=== PATIENT | male | born 1960 | race Caucasian/White ===

== ENCOUNTER 2022-06-30 13:13 | Observation (INO) | payer OTHER ==
[~2022-06-30] VITALS: Ht 172.7 cm; Wt 133.8 kg
[2022-06-30] MEDS ORDERED: meTOprolol 5 MG/5 ML (LOPRESSOR) VIAL IV STA (13:22)
[2022-06-30] MEDS ORDERED: NITROGLYCERIN 0.4 MG SL TABS BTL 25'S SL PRN ×2 (13:30→18:30)
[2022-06-30 13:38] LABS: BASOPHILS % (AUTO) 1 % (0-10); EOSINOPHILS # (AUTO) 0.1 10^3/uL (0.0-0.3); EOSINOPHILS % (AUTO) 2 % (0-10); HEMATOCRIT 44 % (40-54); LYMPHOCYTES # (AUTO) 2.8 10^3/uL (1.0-4.0); LYMPHOCYTES % (AUTO) 33 % (12-44); MEAN CORPUSCULAR HEMOGLOBIN 28 pg (25-34); MEAN CORPUSCULAR HGB CONC 34 g/dL (32-36); MEAN CORPUSCULAR VOLUME 83 fL (80-99); MEAN PLATELET VOLUME 9.7 fL (9.0-12.2); MONOCYTES # (AUTO) 0.6 10^3/uL (0.0-1.0); MONOCYTES % (AUTO) 7 % (0-12); NEUTROPHILS # (AUTO) 4.9 10^3/uL (1.8-7.8); NEUTROPHILS % (AUTO) 58 % (42-75); PLATELET COUNT 256 10^3/uL (130-400); WHITE BLOOD COUNT 8.5 10^3/uL (4.3-11.0)
--- NOTE | 2022-06-30 13:42 | ED Chest Pain ---
General Chief Complaint: Chest Pain Stated Complaint: CHEST PAIN Source: patient, EMS, other (nurse practitioner Britany from [facility] Urgent care) Exam Limitations: no limitations History of Present Illness Date Seen by Provider: Jun 30, 2022 Time Seen by Provider: 13:19 Initial Comments 62-year-old male presenting with EMS due to complaints of chest tightness for the last 2 days. He had a syncopal episode on June 28 and has had chest tightness ever since. He states he feels a little lightheaded. He denies sweating, nausea, vomiting, shortness of breath, abdominal pain, neck pain, numbness in his arms or legs. He denies having symptoms like this previously. He does have a history of diabetes and high blood pressure which also runs in his family. He denies any known cardiac disease for himself or his parents. At work today he had felt like he was going to pass out and had increased chest tightness. He had gone to the urgent care clinic for [facility] and they had called 911 and had EMS transport him for evaluation of his chest tightness. He did receive 324 mg of aspirin by the [facility] staff. He rates his chest tightness as a 3 out of 10. Nothing seems to make it worse or better. Timing/Duration: 1-2 days (Constant chest tightness since June 28) Severity/Quality: mild, tightness Location: substernal, central Radiation: no radiation Activities at Onset: none Prior CP/Workup: no prior cardiac workup ASA po MANAGER ROOFING: Yes (324 mg by [facility]) NTG SL MANAGER ROOFING: No Associated Symptoms: No abdominal pain, No back pain, No diaphoresis, No dizziness, No edema, No fatigue, No fever/chills, No headache, No heartburn, No nausea/vomiting, No rash, No shortness of breath, No swelling/lump in chest, No syncope, No weakness Allergies and Home Medications Allergies Coded Allergies: No Known Drug Allergies (Unverified , 06/30/22) Patient Home Medication List Home Medication List Reviewed: Yes Review of Systems Review of Systems Constitutional: No chills, No diaphoresis, No fever EENTM: No Blurred Vision Respiratory: Denies Cough, Denies Shortness of Air Cardiovascular: See HPI; Denies Edema, Denies Irregular Heart Rate; Lightheadedness; Denies Palpitations; Syncope (Monday and then near syncope today) Gastrointestinal: Denies Nausea, Denies Vomiting Genitourinary: No Symptoms Reported Musculoskeletal: no symptoms reported Skin: no symptoms reported Psychiatric/Neurological: No Symptoms Reported Endocrine: No Symptoms Reported Hematologic/Lymphatic: Denies Blood Clots Past Tyboqng-Vaxcxd-Mhjiuk Hx Patient Social History Tobacco Use?: No Use of E-Cig and/or Vaping dev: No Substance use?: No Alcohol Use?: No Past Medical History Surgery/Hospitalization HX: Hypertension, Diabetes Physical Exam Vital Signs Vital Signs - First Documented 06/30/22 13:13 Temp 36.7 Pulse 93 Resp 12 B/P (MAP) 155/79 (104) Pulse Ox 97 O2 Delivery Room Air Capillary Refill : Height, Weight, BMI Height: '" Weight: lbs. oz. kg; BMI Method: General Appearance: No Apparent Distress, Obese HEENT: PERRL/EOMI, Pharynx Normal Neck: Full Range of Motion, Normal Inspection, Non Tender, Supple Respiratory: Chest Non Tender, Lungs Clear, Normal Breath Sounds, No Accessory Muscle Use, No Respiratory Distress Cardiovascular: Regular Rate, Rhythm, Normal Peripheral Pulses Gastrointestinal: Normal Bowel Sounds, No Pulsatile Mass, Non Tender, Soft Rectal: Deferred Extremity: Normal Capillary Refill, Normal Inspection, Normal Range of Motion, Non Tender, No Calf Tenderness, No Pedal Edema Neurologic/Psychiatric: Alert, Oriented x3, dancing teacher II-XII Norm as Tested Skin: Normal Color, Warm/Dry Progress/Results/Core Measures Results/Orders Lab Results Laboratory Tests Test 06/30/22 13:30 06/30/22 15:26 Range/Units White Blood Count 8.5 4.3-11.0 10^3/uL Red Blood Count 5.35 4.30-5.52 10^6/uL Hemoglobin 15.0 13.3-17.7 g/dL Hematocrit 44 40-54 % Mean Corpuscular Volume 83 80-99 fL Mean Corpuscular Hemoglobin 28 25-34 pg Mean Corpuscular Hemoglobin Concent 34 32-36 g/dL Red Cell Distribution Width 13.5 10.0-14.5 % Platelet Count 256 130-400 10^3/uL Mean Platelet Volume 9.7 9.0-12.2 fL Immature Granulocyte % (Auto) 0 % Neutrophils (%) (Auto) 58 42-75 % Lymphocytes (%) (Auto) 33 12-44 % Monocytes (%) (Auto) 7 0-12 % Eosinophils (%) (Auto) 2 0-10 % Basophils (%) (Auto) 1 0-10 % Neutrophils # (Auto) 4.9 1.8-7.8 10^3/uL Lymphocytes # (Auto) 2.8 1.0-4.0 10^3/uL Monocytes # (Auto) 0.6 0.0-1.0 10^3/uL Eosinophils # (Auto) 0.1 0.0-0.3 10^3/uL Basophils # (Auto) 0.0 0.0-0.1 10^3/uL Immature Granulocyte # (Auto) 0.0 0.0-0.1 10^3/uL Prothrombin Time 12.4 12.2-14.7 SEC INR Comment 0.9 0.8-1.4 Activated Partial Thromboplast Time 26 24-35 SEC Sodium Level 140 135-145 MMOL/L Potassium Level 3.2 L 3.6-5.0 MMOL/L Chloride Level 101 98-107 MMOL/L Carbon Dioxide Level 25 21-32 MMOL/L Anion Gap 14 5-14 MMOL/L Blood Urea Nitrogen 20 H 7-18 MG/DL Creatinine 1.07 0.60-1.30 MG/DL Estimat Glomerular Filtration Rate 78 BUN/Creatinine Ratio 19 Glucose Level 104 70-105 MG/DL Calcium Level 9.6 8.5-10.1 MG/DL Corrected Calcium 9.4 8.5-10.1 MG/DL Magnesium Level 2.0 1.6-2.4 MG/DL Total Bilirubin 0.4 0.1-1.0 MG/DL Aspartate Amino Transf (AST/SGOT) 36 H 5-34 U/L Alanine Aminotransferase (ALT/SGPT) 36 0-55 U/L Alkaline Phosphatase 62 40-136 U/L Troponin I < 0.30 < 0.30 <0.30 NG/ML Pro-B-Type Natriuretic Peptide 24.9 <125.0 PG/ML Total Protein 7.1 6.4-8.2 GM/DL Albumin 4.3 3.2-4.5 GM/DL Lipase 44 8-78 U/L My Orders Orders - MARIAN PRITCHARD MD Cbc With Automated Diff (06/30/22 13:22) Magnesium (06/30/22 13:22) Chest 1 View Ap/Pa Only (06/30/22 13:22) Ekg Tracing (06/30/22 13:22) Comprehensive Metabolic Panel (06/30/22 13:22) Protime With Inr (06/30/22 13:22) Partial Thromboplastin Time (06/30/22 13:22) O2 (06/30/22 13:22) Monitor-Rhythm Ecg Trace Only (06/30/22 13:22) Ed Iv/Invasive Line Start (06/30/22 13:22) Lipase (06/30/22 13:22) Troponin I Fs (06/30/22 13:22) Probnp Fs (06/30/22 13:22) Nitroglycerin 0.4 Mg Btl 25's (Nitrostat (06/30/22 13:30) Morphine Injection (Morphine Injection (06/30/22 14:15) Ct Angio Chest W (06/30/22 14:51) Ct Head Wo (06/30/22 14:51) Iohexol Injection (Omnipaque 350 Mg/Ml 1 (06/30/22 15:00) Received Contrast (Hold Metformin- Contr (06/30/22 15:00) Sodium Chloride Flush (Catheter Flush Sy (06/30/22 15:00) Ns (Ivpb) (Sodium Chloride 0.9% Ivpb Bag (06/30/22 15:00) Troponin I Fs (06/30/22 14:57) Ed Admission (Communication) (06/30/22 16:06) Medications Given in ED Current Medications Medications Dose Ordered Sig/Dale Route Start Time Stop Time Status Last Admin Dose Admin Iohexol 100 ml ONCE ONCE IV 06/30/22 15:00 06/30/22 15:29 DC 06/30/22 15:23 100 ML Nitroglycerin 1 TAB Q 5 MIN X 3 NEEDED PRN SL 06/30/22 13:30 06/30/22 13:38 0.4 MG Sodium Chloride 10 ml NEEDED PRN IV 06/30/22 15:00 06/30/22 15:24 10 ML Sodium Chloride 100 ml ONCE ONCE IV 06/30/22 15:00 06/30/22 15:29 DC 06/30/22 15:23 100 ML Vital Signs/I&O 06/30/22 06/30/22 13:13 16:37 Temp 36.7 36.7 Pulse 93 79 Resp 12 18 B/P (MAP) 155/79 (104) 142/77 Pulse Ox 97 95 O2 Delivery Room Air Room Air Progress Progress Note #1: Progress Note Obtain electrocardiogram and chest x-ray as well as labs to look at his blood count, electrolytes, cardiac enzymes. Since he is radiated chest tightness 3 out of 10 will administer sublingual nitroglycerin and order a single dose of metoprolol 5 mg IV. If his pain is not improving then he might also require morphine or fentanyl. On my independent review and interpretation of his electrocardiogram he has no acute ST elevation. He does not have any prior tracing for me to compare with. Differential diagnosis includes cardiac arrhythmia, myocardial infarction, acute coronary syndrome, dehydration, uncontrolled diabetes, upper respiratory infection Progress Note #2: Time: 14:15 Progress Note Patient denied any significant improvement in the chest tightness with getting the sublingual nitroglycerin. Initially metoprolol 5 mg IV was ordered but as his pressure did come down some with nitroglycerin and this was held. Since he was not having any significant improvement in his chest tightness a dose of morp hoa was ordered to see if it would help. 1448 labs show stable CBC without acute significant abnormality on his white blood cells hemoglobin. He has a stable chemistry panel without acute significant abnormality and is negative cardiac enzymes of troponin. His coags were also normal without acute significant abnormality. His chest x-ray on my independent review and interpretation did not show any acute infiltrate, mass, effusion. He had no acute ST elevation on his electrocardiogram on my review of that and he had no prior tracing for comparison. When reviewing the findings and results of the labs with patient and spouse he does report that his chest tightness resolved after the morphine. He was advised that we were adding a CT scan of his head to ensure that there was no mass or stroke or bleeding to account for his lightheadedness and syncope. A CT angiogram of his chest to look for pulmonary embolism, aortic aneurysm, finer detail of the lungs. Progress Note #3: Time: 15:42 Progress Note Page placed to Dr. Lynch on-call physician for [facility]. She was in with a patient so her nurse will have her call me back as soon as she is free. 1555 Dr. Lynch called back and I discussed the case with her. Patient has had a syncopal episode Jaye and then near syncope today with continued chest tightness for last [address] observation admit for [facility] [place] bed for continued cardiac monitoring and serial cardiac enzymes. She accepted pt for admit and will place queued orders. Initial ECG Impression Date: Jun 30, 2022 Initial ECG Impression Time: 13:17 Initial ECG Rate: 80 Initial ECG Rhythm: Normal Sinus Initial ECG Comparisson: No Previous ECG Available Comment My independent interpretation and review of his electrocardiogram shows sinus rhythm with a heart rate of 80 bpm. He has a first-degree AV block with a UT interval of 216 ms. He has no acute ST elevation. QT interval 357 ms with a QTc interval 392 ms. There is no prior tracing immediately available for comparison. Diagnostic Imaging Diagonstic Imaging: Xray Plain Films/CT/US/NM/MRI: chest Comments NAME: HELENA BANERJEE MED REC#: [id number] PT STATUS: REG ER : 1960 PHYSICIAN: MARIAN PRITCHARD MD ADMIT DATE: 06/30/22/ER FS Signed Date of Exam:06/30/22 CHEST 1 VIEW AP/PA ONLY EXAMINATION: Chest 1 view HISTORY: chest tightness, near syncope COMPARISON: None available. FINDINGS: Heart size and pulmonary vasculature are normal. The lungs are clear without consolidation, pleural effusion, or pneumothorax. The osseous structures are intact. IMPRESSION: 1. No acute radiographic abnormality in the chest. Dictated by: Dictated on workstation # [id number] Dict: 06/30/22 1342 Trans: 06/30/22 134 [facility] [id number] Interpreted by: KATY MORAN DO Electronically signed by: KATY MORAN DO 06/30/22 1345 Reviewed: Reviewed by Me Diagonstic Imaging: CT Plain Films/CT/US/NM/MRI: chest (angiogram) Comments [facility]. [place], [place] NAME: HELENA BANERJEE MED REC#: [id number] PT STATUS: REG ER : 1960 PHYSICIAN: MARIAN PRITCHARD MD ADMIT DATE: 06/30/22/ER FS Signed Date of Exam:06/30/22 CT ANGIO CHEST W EXAMINATION: CT angiography of the chest. TECHNIQUE: Contrast enhanced thin section helical images were obtained through the chest with intravenous contrast timed for the optimal opacification of the arterial structures per CTA protocol. Post-processing, reconstructions and interpretation of angiographic images of the vessels was performed. 3D MIP reconstructions were performed and reviewed. All CT scans use one or more of the following dose optimizing techniques: automated exposure control, MA and/or KvP adjustment based on a patient size and exam type, or iterative reconstruction. HISTORY: chest tightness, syncope COMPARISON: None available. FINDINGS: Vascular: No filling defects within the pulmonary arteries. Thoracic aorta is normal in caliber. Thyroid: The thyroid is normal. Mediastinum: Heart size is normal without significant pericardial effusion. No suspicious lymphadenopathy. Lungs and airways: The lungs are clear without consolidation, pleural effusion, or pneumothorax. There is a calcified granuloma within the lingula. The airways are normal. Upper abdomen: The gallbladder is surgically absent. Musculoskeletal: Degenerative changes of the spine without suspicious osseous lesion or compression fracture. IMPRESSION: 1. No findings of pulmonary embolus or other acute abnormality in the chest. Dictated by: Dictated on workstation # [id number] Dict: 06/30/22 1531 Trans: 06/30/22 1551 [facility] [id number] Interpreted by: KATY MORAN DO Electronically signed by: KATY MORAN DO 06/30/22 155 Reviewed: Reviewed by Tn Diagonstic Imaging: CT Plain Films/CT/US/NM/MRI: head Comments [facility] [place] [place] NAME: HELENA BANERJEE [facility] REC#: [id number] PT STATUS: REG ER : 1960 PHYSICIAN: MARIAN PRITCHARD MD ADMIT DATE: 06/30/22/ER FS Signed Date of Exam:06/30/22 CT HEAD WO EXAMINATION: CT head without contrast. TECHNIQUE: Multiple contiguous axial images were obtained through the brain without the use of intravenous contrast. All CT scans use one or more of the following dose optimizing techniques: automated exposure control, MA and/or KvP adjustment based on patient size and exam type or iterative reconstruction. HISTORY: chest tightness, syncope COMPARISON: None available. FINDINGS: The ventricles and sulci are normal. No abnormal attenuation of brain parenchyma is present. No acute intracranial hemorrhage or abnormal extra-axial fluid collections are present. No hyperdense vessel. The calvarium is intact. The mastoid air cells are clear. Mucosal thickening of the paranasal sinuses. The orbits are normal. IMPRESSION: 1. No acute intracranial abnormality. Dictated by: Dictated on workstation # [id number] Dict: 06/30/22 1530 Trans: 06/30/22 1551 [id number] [id number] Interpreted by: KATY MORAN DO Electronically signed by: KATY MORAN DO 06/30/22 1557 Reviewed: Reviewed by Me Departure Communication (Admissions) Time/Spoke to Admitting Phy: 15:55 d/w Dr. Lynch and she accepted pt for admit observation for his syncope and chest pain. Impression Primary Impression: Chest tightness Additional Impression: Syncope Qualified Codes: R55 - Syncope and collapse Disposition: 30 STILL A PATIENT Condition: Stable Admissions Decision to Admit Reason: Admit from ER (General) Decision to Admit/Date: Jun 30, 2022 Time/Decision to Admit Time: 15:55 MARIAN PRITCHARD MD Jun 30, 2022 13:42
[2022-06-30 14:01] LABS: INR 0.9 (0.8-1.4); PROTHROMBIN TIME PATIENT 12.4 SEC (12.2-14.7)
[2022-06-30 14:11] LABS: ALBUMIN 4.3 GM/DL (3.2-4.5); BILIRUBIN,TOTAL 0.4 MG/DL (0.1-1.0); CALCIUM 9.6 MG/DL (8.5-10.1); CREATININE SERUM 1.07 MG/DL (0.60-1.30); POTASSIUM 3.2 MMOL/L (3.6-5.0); TOTAL PROTEIN 7.1 GM/DL (6.4-8.2)
[2022-06-30] MEDS ORDERED: morphine INJ 10 MG/ML 1ML (SYR OR VIAL) IVP STA (14:15)
[2022-06-30] MEDS ORDERED: IOHEXOL 350 MG/ML 100 ML (OMNIPAQUE 350) VIAL IV ONE (15:00)
[2022-06-30] MEDS ORDERED: HOLD METFORMIN - RECEIVED CONTRAST 20 ML VIAL IV SCH (15:00)
[2022-06-30] MEDS ORDERED: NS 100 ML (IVPB) BAG IV ONE (15:00)
[2022-06-30] MEDS: CATHETER FLUSH 10 ML SYR IV PRN (15:24)
--- NOTE | 2022-06-30 15:33 | Diagnostic Imaging Report ---
EXAMINATION: CT head without contrast. TECHNIQUE: Multiple contiguous axial images were obtained through the brain without the use of intravenous contrast. All CT scans use one or more of the following dose optimizing techniques: automated exposure control, MA and/or KvP adjustment based on patient size and exam type or iterative reconstruction. HISTORY: chest tightness, syncope COMPARISON: None available. FINDINGS: The ventricles and sulci are normal. No abnormal attenuation of brain parenchyma is present. No acute intracranial hemorrhage or abnormal extra-axial fluid collections are present. No hyperdense vessel. The calvarium is intact. The mastoid air cells are clear. Mucosal thickening of the paranasal sinuses. The orbits are normal. IMPRESSION: 1. No acute intracranial abnormality. Dictated by: Dictated on workstation # [id number]
--- NOTE | 2022-06-30 15:35 | Diagnostic Imaging Report ---
EXAMINATION: CT angiography of the chest. TECHNIQUE: Contrast enhanced thin section helical images were obtained through the chest with intravenous contrast timed for the optimal opacification of the arterial structures per CTA protocol. Post-processing, reconstructions and interpretation of angiographic images of the vessels was performed. 3D MIP reconstructions were performed and reviewed. All CT scans use one or more of the following dose optimizing techniques: automated exposure control, MA and/or KvP adjustment based on a patient size and exam type, or iterative reconstruction. HISTORY: chest tightness, syncope COMPARISON: None available. FINDINGS: Vascular: No filling defects within the pulmonary arteries. Thoracic aorta is normal in caliber. Thyroid: The thyroid is normal. Mediastinum: Heart size is normal without significant pericardial effusion. No suspicious lymphadenopathy. Lungs and airways: The lungs are clear without consolidation, pleural effusion, or pneumothorax. There is a calcified granuloma within the lingula. The airways are normal. Upper abdomen: The gallbladder is surgically absent. Musculoskeletal: Degenerative changes of the spine without suspicious osseous lesion or compression fracture. IMPRESSION: 1. No findings of pulmonary embolus or other acute abnormality in the chest. Dictated by: Dictated on workstation # [id number]
[2022-06-30 17:34] VITALS: BP 173/105
[2022-06-30] MEDS ORDERED: ANTACID SUSP 30 ML UDC (MYLANTA) PO PRN (18:30)
[2022-06-30] MEDS ORDERED: diphenhydrAMINE 25 MG TAB (BENADRYL) PO PRN (18:30)
[2022-06-30] MEDS ORDERED: ACETAMINOPHEN 325 MG TABLET PO PRN (18:30)
[2022-06-30] MEDS ORDERED: BISACODYL 10 MG SUPP (DULCOLAX) PR PRN (18:30)
[2022-06-30] MEDS ORDERED: cloNIDine 0.1 MG (CATAPRES) TAB PO PRN (18:30)
[2022-06-30] MEDS ORDERED: diphenhydrAMINE 50 MG/ML INJ (BENADRYL) IVP PRN (18:30)
[2022-06-30] MEDS ORDERED: ALPRAZolam 0.5 MG (XANAX) TAB PO PRN (18:30)
[2022-06-30] MEDS ORDERED: polyethylene glycoL POWDER 17 GM (MIRALAX) PACK PO PRN (18:30)
[2022-06-30] MEDS ORDERED: ONDANSETRON 4 MG/2 ML (SDV) Z0FRAN IV PRN (18:30)
[2022-06-30] MEDS ORDERED: ENOXAPARIN 40 MG/0.4 ML (LOVENOX) SYR SC SCH (18:30)
[2022-06-30] MEDS ORDERED: ONDANSETRON 4 MG (ZOFRAN) ORAL DISSOLVE TAB PO PRN (18:30)
[2022-06-30] MEDS ORDERED: MELATONIN 3 MG TABLET PO PRN (18:30)
[2022-06-30] MEDS ORDERED: morphine INJ 4 MG/ML 1 ML (VIAL/SYRINGE) IV PRN (18:30)
[2022-06-30] MEDS: ENOXAPARIN 40 MG/0.4 ML (LOVENOX) SYR SC SCH (18:53)
[2022-06-30 19:08] VITALS: BP 133/83
[2022-06-30] MEDS: inSUlin ASPART (NovoLOG) 1 UNIT/0.01 ML (CHARGE PER UNIT) SC SCH (21:10)
[2022-06-30] MEDS ORDERED: PANTOPRAZOLE 40 MG (PROTONIX) TAB PO SCH (21:30)
[2022-06-30] MEDS: DOCUSATE SODIUM 100 MG (COLACE) CAP PO SCH (23:09)
[2022-07-01] VITALS (7 sets, daily range): BP systolic 119–164; BP diastolic 71–92
[2022-07-01 05:41] LABS: BASOPHILS % (AUTO) 1 % (0-10); EOSINOPHILS # (AUTO) 0.1 10^3/uL (0.0-0.3); EOSINOPHILS % (AUTO) 2 % (0-10); HEMATOCRIT 44 % (40-54); HEMOGLOBIN 14.7 g/dL (13.3-17.7); LYMPHOCYTES # (AUTO) 2.6 10^3/uL (1.0-4.0); LYMPHOCYTES % (AUTO) 36 % (12-44); MEAN CORPUSCULAR HEMOGLOBIN 28 pg (25-34); MEAN CORPUSCULAR HGB CONC 34 g/dL (32-36); MEAN CORPUSCULAR VOLUME 83 fL (80-99); MONOCYTES # (AUTO) 0.6 10^3/uL (0.0-1.0); MONOCYTES % (AUTO) 8 % (0-12); NEUTROPHILS # (AUTO) 3.9 10^3/uL (1.8-7.8); NEUTROPHILS % (AUTO) 54 % (42-75); PLATELET COUNT 216 10^3/uL (130-400); WHITE BLOOD COUNT 7.3 10^3/uL (4.3-11.0)
[2022-07-01 06:00] LABS: CHLORIDE 108 MMOL/L (98-107); POTASSIUM 3.2 MMOL/L (3.6-5.0); SODIUM 139 MMOL/L (135-145)
[2022-07-01 06:01] LABS: ALBUMIN 3.9 GM/DL (3.2-4.5)
[2022-07-01 06:03] LABS: GLUCOSE 112 MG/DL (70-105); TOTAL PROTEIN 6.8 GM/DL (6.4-8.2); TRIGLYCERIDES 629 MG/DL (<150); VLDL CHOLESTEROL 126 MG/DL (5-40)
[2022-07-01 06:04] LABS: CARBON DIOXIDE 20 MMOL/L (21-32)
[2022-07-01 06:05] LABS: BILIRUBIN,TOTAL 0.5 MG/DL (0.1-1.0)
[2022-07-01 06:07] LABS: ALKALINE PHOSPHATASE 45 U/L (40-136); CREATININE SERUM 0.85 MG/DL (0.60-1.30); GFR ESTIMATED 98
[2022-07-01 06:08] LABS: BUN/CREATININE RATIO 24; CHOLESTEROL 173 MG/DL (< 200)
[2022-07-01 06:09] LABS: HDL CHOLESTEROL 34 MG/DL (40-60)
[2022-07-01 06:10] LABS: ALANINE AMINOTRANSFERASE 38 U/L (0-55)
[2022-07-01] MEDS: inSUlin ASPART (NovoLOG) 1 UNIT/0.01 ML (CHARGE PER UNIT) SC SCH ×2 (06:28→11:00)
[2022-07-01] MEDS ORDERED: KCL 20 MEQ TAB (K-DUR) PO ONE (06:30)
[2022-07-01] MEDS: ENOXAPARIN 40 MG/0.4 ML (LOVENOX) SYR SC SCH (06:44)
--- NOTE | 2022-07-01 08:02 | Consultation-Cardiology ---
HPI-Cardiology Cardiology Consultation: Date of Consultation 07/01/22 Time Seen by a Provider: 08:15 Date of Admission 06-30-22 Attending Physician Destiny Whyte Aprn Admitting Physician Admitting Physician: Tonia Lynch DO Attending Physician: Tonia Lynch DO Consulting Physician Kain Gomes MD HPI: Chief Complaint: Chest pain; syncope Mr. Alfaro is a 62 yr old male admitted to 408 from the ED. He reports he was sitting at the dinner table on Monday night and had taken a drink of tea. He reports the next thing he recalls he was on the floor with his girlfriend stand ing over him. He denies any loss of bowel or bladder control. He had no symptoms prior to the syncopal episode. He reports since that event he has had pressure across his chest that has been constant. He states it does not change with exertion. He reports the pain was relieved with IV Morphine that he received in the ED and has not returned. He denies any SOB, palpitations or LE swelling. No c/o n/v/d. No c/o fever or chills. He is currently pain free. Review of Systems-Cardiology Review of Systems Constitutional: No chills, No fever, No malaise Eyes: No vision change Ears/Nose/Throat: No epistaxis, No recent hearing loss Respiratory: As described under HPI Cardiovascular: As described under HPI Gastrointestinal: No constipation, No diarrhea, No nausea, No vomiting Genitourinary: No dysuria, No hematuria Musculoskeletal: no symptoms reported Skin: No rash on exposed areas, No ulcerations on exposed areas Psychiatric/Neurological: As described under HPI, syncope; No anxiety, No depression, No seizure, No focal weakness Hematologic: No bleeding abnormalities OVT-Hknakx-Zsgrtm Hx Patient Social History Smoking Status: Never a Smoker Have you traveled recently?: No Alcohol Use?: No Pt feels they are or have been: No Past Medical History PMH As described under Assessment. Family Medical History Family Medical History: He reports his mother has "heart trouble" but is unsure of any details. Allergies and Home Medications Allergies Coded Allergies: No Known Drug Allergies (Unverified , 06/30/22) Physical Exam-Cardiology Physical Exam Vital Signs/I&O 06/30/22 06/30/22 07/01/22 07/01/22 20:46 21:00 00:00 01:11 Temp 36.5 Pulse 81 76 81 Resp 16 B/P (MAP) 127/71 (89) Pulse Ox 96 92 O2 Delivery Nasal Cannula Room Air 07/01/22 07/01/22 07/01/22 07/01/22 04:01 07:00 07:43 07:47 Temp 36.2 36.2 Pulse 84 72 81 Resp 16 18 B/P (MAP) 136/79 (98) 119/79 (92) Pulse Ox 95 96 94 O2 Delivery Room Air Nasal Cannula Room Air 07/01/22 00:00 Intake Total 600 ml Balance 600 ml Capillary Refill : Less Than 3 Seconds Constitutional: AAO x 3, well-developed, well-nourished HEENT: PERRL, hearing is well preserved, oral hygience is good Neck: No carotid bruit; carotid pulses are 2 + bilaterally Respiratory: No accessory muscle use, No respiratory distress; chest expansion is symmetric, chest is bilaterally symmetric, lungs clear to auscultation Cardiovascular: regular rate-rhythm; No JVD; S1 and S2 Gastrointestinal: No tender; soft, round, audible bowel sounds Extremities: no lower extremity edema bilateral Neurologic/Psychiatric: grossly intact (moves all extremities) Skin: No rash on exposed areas, No ulcerations on exposed areas Data Review Labs Laboratory Tests 06/30/22 13:30: White Blood Count 8.5, Red Blood Count 5.35, Hemoglobin 15.0, Hematocrit 44, Mean Corpuscular Volume 83, Mean Corpuscular Hemoglobin 28, Mean Corpuscular Hemoglobin Concent 34, Red Cell Distribution Width 13.5, Platelet Count 256, Mean Platelet Volume 9.7, Immature Granulocyte % (Auto) 0, Neutrophils (%) (Auto) 58, Lymphocytes (%) (Auto) 33, Monocytes (%) (Auto) 7, Eosinophils (%) (Auto) 2, Basophils (%) (Auto) 1, Neutrophils # (Auto) 4.9, Lymphocytes # (Auto) 2.8, Monocytes # (Auto) 0.6, Eosinophils # (Auto) 0.1, Basophils # (Auto) 0.0, Immature Granulocyte # (Auto) 0.0, Prothrombin Time 12.4, INR Comment 0.9, Activated Partial Thromboplast Time 26, Sodium Level 140, Potassium Level 3.2L, Chloride Level 101, Carbon Dioxide Level 25, Anion Gap 14, Blood Urea Nitrogen 20H, Creatinine 1.07, Estimat Glomerular Filtration Rate 78, BUN/Creatinine Ratio 19, Glucose Level 104, Calcium Level 9.6, Corrected Calcium 9.4, Magnesium Level 2.0, Total Bilirubin 0.4, Aspartate Amino Transf (AST/SGOT) 36H, Alanine Aminotransferase (ALT/SGPT) 36, Alkaline Phosphatase 62, Troponin I < 0.30, Pro-B-Type Natriuretic Peptide 24.9, Total Protein 7.1, Albumin 4.3, Lipase 44 06/30/22 15:26: Troponin I < 0.30 06/30/22 20:38: Glucometer 106 06/30/22 23:50: Troponin I < 0.028 07/01/22 05:28: Glucometer 110 07/01/22 05:36: White Blood Count 7.3, Red Blood Count 5.29, Hemoglobin 14.7, Hematocrit 44, Mean Corpuscular Volume 83, Mean Corpuscular Hemoglobin 28, Mean Corpuscular Hemoglobin Concent 34, Red Cell Distribution Width 13.4, Platelet Count 216, Mean Platelet Volume 10.0, Immature Granulocyte % (Auto) 0, Neutrophils (%) (Auto) 54, Lymphocytes (%) (Auto) 36, Monocytes (%) (Auto) 8, Eosinophils (%) (Auto) 2, Basophils (%) (Auto) 1, Neutrophils # (Auto) 3.9, Lymphocytes # (Auto) 2.6, Monocytes # (Auto) 0.6, Eosinophils # (Auto) 0.1, Basophils # (Auto) 0.0, Immature Granulocyte # (Auto) 0.0, Sodium Level 139, Potassium Level 3.2L, Chloride Level 108H, Carbon Dioxide Level 20L, Anion Gap 11, Blood Urea Nitrogen 20H, Creatinine 0.85, Estimat Glomerular Filtration Rate 98, BUN/Creatinine Ratio 24, Glucose Level 112H, Calcium Level 9.0, Corrected Calcium 9.1, Total Bilirubin 0.5, Aspartate Amino Transf (AST/SGOT) 33, Alanine Aminotransferase (ALT/SGPT) 38, Alkaline Phosphatase 45, Troponin I < 0.028, Total Protein 6.8, Albumin 3.9, Triglycerides Level 629H, Cholesterol Level 173, LDL Cholesterol Direct 68, VLDL Cholesterol 126H, HDL Cholesterol 34L Radiology NAME: HELENA ALFARO [facility] REC#: [id number] PT STATUS: REG ER : 1960 PHYSICIAN: MARIAN PRITCHARD MD ADMIT DATE: 06/30/22/ER FS Signed Date of Exam:06/30/22 CHEST 1 VIEW AP/PA ONLY EXAMINATION: Chest 1 view HISTORY: chest tightness, near syncope COMPARISON: None available. FINDINGS: Heart size and pulmonary vasculature are normal. The lungs are clear without consolidation, pleural effusion, or pneumothorax. The osseous structures are intact. IMPRESSION: 1. No acute radiographic abnormality in the chest. Dictated by: Dictated on workstation # [id number] Dict: 06/30/22 1342 Trans: 06/30/22 134 [facility] [id number] Interpreted by: KATY MORAN DO Electronically signed by: KATY MORAN DO 06/30/22 1345 NAME: HELENA ALFARO [facility] REC#: [id number] PT STATUS: REG ER : 1960 PHYSICIAN: MARIAN PRITCHARD MD ADMIT DATE: 06/30/22/ER FS Signed Date of Exam:06/30/22 CT ANGIO CHEST W EXAMINATION: CT angiography of the chest. TECHNIQUE: Contrast enhanced thin section helical images were obtained through the chest with intravenous contrast timed for the optimal opacification of the arterial structures per CTA protocol. Post-processing, reconstructions and interpretation of angiographic images of the vessels was performed. 3D MIP reconstructions were performed and reviewed. All CT scans use one or more of the following dose optimizing techniques: automated exposure control, MA and/or KvP adjustment based on a patient size and exam type, or iterative reconstruction. HISTORY: chest tightness, syncope COMPARISON: None available. FINDINGS: Vascular: No filling defects within the pulmonary arteries. Thoracic aorta is normal in caliber. Thyroid: The thyroid is normal. Mediastinum: Heart size is normal without significant pericardial effusion. No suspicious lymphadenopathy. Lungs and airways: The lungs are clear without consolidation, pleural effusion, or pneumothorax. There is a calcified granuloma within the lingula. The airways are normal. Upper abdomen: The gallbladder is surgically absent. Musculoskeletal: Degenerative changes of the spine without suspicious osseous lesion or compression fracture. IMPRESSION: 1. No findings of pulmonary embolus or other acute abnormality in the chest. Dictated by: Dictated on workstation # [id number] Dict: 06/30/221530 Trans: 06/30/221550 CVB [id number] Interpreted by: KATY MORAN DO Electronically signed by: KATY MORAN DO 06/30/221550 NAME: HELENA ALFARO [facility] REC#: [id number] PT STATUS: REG ER : 1960 PHYSICIAN: MARIAN PRITCHARD MD ADMIT DATE: 06/30/22/ER FS Signed Date of Exam:06/30/22 CT HEAD WO EXAMINATION: CT head without contrast. TECHNIQUE: Multiple contiguous axial images were obtained through the brain without the use of intravenous contrast. All CT scans use one or more of the following dose optimizing techniques: automated exposure control, MA and/or KvP adjustment based on patient size and exam type or iterative reconstruction. HISTORY: chest tightness, syncope COMPARISON: None available. FINDINGS: The ventricles and sulci are normal. No abnormal attenuation of brain parenchyma is present. No acute intracranial hemorrhage or abnormal extra-axial fluid collections are present. No hyperdense vessel. The calvarium is intact. The mastoid air cells are clear. Mucosal thickening of the paranasal sinuses. The orbits are normal. IMPRESSION: 1. No acute intracranial abnormality. Dictated by: Dictated on workstation # [id number] Dict: 06/30/221529 Trans: 06/30/221550 AS6 [id number] Interpreted by: KATY MORAN DO Electronically signed by: KATY MORAN DO 06/30/221550 ECG Impression ECG Comment SR with 1st degree AV block A/P-Cardiology Assessment/Admission Diagnosis Chest pain of undetermined etiology Syncope of undetermined etiology HTN HLD - statin tx DM 2 GERD H/O cholecystectomy Discussion and Recomendations Chest discomfort of undetermined etiology - no evidence of ACS - based on c/o, risk factors as noted above we advise MPI to eval perfusion and echo to eval structure and function Syncope of undetermined etiology - we advise that he not drive, operate heavy machinery, climb ladders or participate in any activity that could result in harm to self or others - advise [place] monitor as out pt Continue ASA Continue home medications Further recs will be based on his hospital course We would like to thank medical services for this consult Clinical Quality Measures AMI/AHF: ASA po Prior to arrival: Yes (324 mg by [facility]) KRISTA DOWNS Jul 01, 2022 08:02
[2022-07-01] MEDS ORDERED: REGADENOSON 0.4 MG/5 ML SYR (LEXISCAN) IV ONE ×2 (08:45→12:36)
[2022-07-01] MEDS ORDERED: ASPIRIN 81 MG CHEW (CHILDREN'S ASA) PO SCH (09:00)
[2022-07-01] MEDS: DOCUSATE SODIUM 100 MG (COLACE) CAP PO SCH (10:18)
[2022-07-01] MEDS ORDERED: EMPA10TA PO (11:39)
[2022-07-01] MEDS ORDERED: SERT-413 PO (11:39)
[2022-07-01] MEDS ORDERED: SEMA2PEN INJ (11:39)
[2022-07-01] MEDS ORDERED: SIMV40TA25 PO (11:39)
[2022-07-01] MEDS ORDERED: FENO45CA2 PO (11:39)
[2022-07-01] MEDS ORDERED: LOSA1TAB23 PO (11:39)
[2022-07-01] MEDS ORDERED: GLIP5TAB26 PO (11:39)
[2022-07-01] MEDS ORDERED: MELO15TA39 PO (11:39)
[2022-07-01] MEDS ORDERED: AMLO-250 PO (11:39)
[2022-07-01] MEDS: CATHETER FLUSH 10 ML SYR IV PRN (12:46)
--- NOTE | 2022-07-01 13:08 | Short Stay Summary-Hospitalist ---
MALIKAMIRZAWANDY FELIX 07/01/22 1308: History of Present Illness HPI/Chief Complaint CC: Syncope and chest tightness 62yo M with h/o HTN and DM presented to the ED yesterday with worsening chest tightness following a syncopal episode on 06/28. Pt states that on 06/28, he experienced a syncopal episode while drinking tea. Pt denies any preceding symptoms and states that all he remembers is drinking tea then being woken up on the floor. Pt denies loss of respirations or striking his head when he fell. Pt notes that when he came to, he started to experience midsternal chest tightness and lightheadedness that kept worsening, prompting him to go to the ED. In ED, workup was remarkable for mild hypokalemia and troponin and BNP were negative. Pt had an EKG that showed SR. CT head, CXR, and CTA all unremarkable. Pt was hypertensive in the ED and was given metoprolol which improved his BP. Pt was also given aspirin and nitro for his chest tightness but had no relief. Pt was then given morphine, which did provide relief. Pt was admitted for observation. Pt notes that he has been experiencing intermittent lightheadedness for the past several weeks but attributed it to low blood sugar. Pt states that his sugars during these episodes were in the 60's to 90's. Pt also notes that he has been experiencing a cough for the past week that is similar to when he has allergies. Pt states that he has been taking generic tylenol allergy daily with some relief . Pt also notes that he experienced an episode of diarrhea on Monday. Today, pt is resting comfortably in bed. Pt states that his chest tightness has improved but is still present. Pt states resolution of his lightheadedness. Today, pt is resting comfortably in bed. Pt states that his chest tightness has improved and his lightheadedness has resolved. Pt was able to eat last night without issue but is now NPO due to scheduled stress test today. Pt has been voiding and having BMs without issue. Pt currently has no complaints. Pt denies any recent sick contacts, recent or current palpitations, recent changes in medications, SOA, nausea, vomiting, melena, hematochezia, fevers, or abd pain. Repeat troponins negative. Repeat EKG showed SR with 1st degree AV block. Source: patient, old records Exam Limitations: no limitations Date Seen 07/01/22 Time Seen by a Provider: 13:05 Attending Physician Destiny Whyte Aprn PCP Admitting Physician: Tonia Stephen DO Attending Physician: Tonia Stephen DO Referring Physician Date of Admission Jun 30, 2022 at 17:35 Home Medications & Allergies Home Medications Reviewed patient Home Medication Reconciliation performed by pharmacy medication reconciliations anaesthetic technician and/or nursing. Patients Allergies have been reviewed. Allergies Allergies Coded Allergies No Known Drug Allergies (Lvgsitorba29/20/22) Past Medical/Social/Family Hx Patient Social History Employed/Student: employed Tobacco Use?: No Smoking Status: Never a Smoker Use of E-Cig and/or Vaping dev: No Substance use?: No Alcohol Use?: No Pt stated abuse/neglect: No Immunizations Up To Date Influenza Vaccine Up-to-Date: No; Not Current First/Initial COVID19 Vaccinat: Not currently vaccinated Tetanus Booster (TDap): More Than 5 Years Hepatitis A: No Hepatitis B: No TB Skin Test: None Current Status Advance Directives: No Communicates: Verbally Primary Language: Belarusian Preferred Spoken Language: Belarusian Is interpretation needed?: No Sensory deficits: Vision impairment Implanted or Applied Medical D: Orthopedic hardware Past Medical History HTN DM Hypercholesterolemia Family Medical History Family Hx: mother-DM and hypercholesterolemia Review of Systems Constitutional: No chills, No diaphoresis, No dizziness, No fever EENTM: No hearing loss, No vision loss Respiratory: No cough, No dyspnea on exertion, No hemoptysis Cardiovascular: chest pain (tightness ); No edema, No palpitations, No vascular heart diseas Gastrointestinal: No abdominal pain, No constipation, No diarrhea, No melena, No nausea, No vomiting Genitourinary: No decreased output, No discharge, No dysuria, No frequency Musculoskeletal: No back pain, No gout, No joint pain Skin: No change in color, No change in hair/nails Psychiatric/Neurological: Denies Anxiety, Denies Depressed All Other Systems Reviewed Negative Unless Noted: Yes Physical Exam Physical Exam Vital Signs Vital Signs - First Documented 06/30/22 13:13 Temp 36.7 Pulse 93 Resp 12 B/P (MAP) 155/79 (104) Pulse Ox 97 O2 Delivery Room Air Capillary Refill : Less Than 3 Seconds Height, Weight, BMI Height: '" Weight: lbs. oz. kg; 44.86 BMI Method: General Appearance: No Apparent Distress, Obese HEENT: PERRL/EOMI, Pharynx Normal Neck: Normal Inspection, Supple Respiratory: Chest Non Tender, Lungs Clear, Normal Breath Sounds, No Accessory Muscle Use, No Respiratory Distress Cardiovascular: Regular Rate, Rhythm, Normal Peripheral Pulses Gastrointestinal: No Pulsatile Mass, Non Tender, Soft Extremity: Normal Inspection, No Calf Tenderness, No Pedal Edema Neurologic/Psychiatric: Alert, Oriented x3 Skin: Normal Color, Warm/Dry Lymphatic: No Adenopathy Results Results/Procedures Labs Laboratory Tests 06/30/22 13:30 07/01/22 05:36 Patient resulted labs reviewed. Imaging NAME: HELENA BANERJEE [facility] REC#: [id number] PT STATUS: REG ER : 1960 PHYSICIAN: MARIAN PRITCHARD MD ADMIT DATE: 06/30/22/ER FS Signed Date of Exam:06/30/22 CHEST 1 VIEW AP/PA ONLY EXAMINATION: Chest 1 view HISTORY: chest tightness, near syncope COMPARISON: None available. FINDINGS: Heart size and pulmonary vasculature are normal. The lungs are clear without consolidation, pleural effusion, or pneumothorax. The osseous structures are intact. IMPRESSION: 1. No acute radiographic abnormality in the chest. Dictated by: Dictated on workstation # [id number] Dict: 06/30/22 1342 Trans: 06/30/22 1345 [facility] [id number] Interpreted by: KATY MORAN DO Electronically signed by: KATY MORAN DO 06/30/22 1345 NAME: HELENA BANERJEE [facility] REC#: [id number] PT STATUS: REG ER : 1960 PHYSICIAN: MARIAN PRITCHARD MD ADMIT DATE: 06/30/22/ER FS Signed Date of Exam:06/30/22 CT ANGIO CHEST W EXAMINATION: CT angiography of the chest. TECHNIQUE: Contrast enhanced thin section helical images were obtained through the chest with intravenous contrast timed for the optimal opacification of the arterial structures per CTA protocol. Post-processing, reconstructions and interpretation of angiographic images of the vessels was performed. 3D MIP reconstructions were performed and reviewed. All CT scans use one or more of the following dose optimizing techniques: automated exposure control, MA and/or KvP adjustment based on a patient size and exam type, or iterative reconstruction. HISTORY: chest tightness, syncope COMPARISON: None available. FINDINGS: Vascular: No filling defects within the pulmonary arteries. Thoracic aorta is normal in caliber. Thyroid: The thyroid is normal. Mediastinum: Heart size is normal without significant pericardial effusion. No suspicious lymphadenopathy. Lungs and airways: The lungs are clear without consolidation, pleural effusion, or pneumothorax. There is a calcified granuloma within the lingula. The airways are normal. Upper abdomen: The gallbladder is surgically absent. Musculoskeletal: Degenerative changes of the spine without suspicious osseous lesion or compression fracture. IMPRESSION: 1. No findings of pulmonary embolus or other acute abnormality in the chest. Dictated by: Dictated on workstation # [id number] Dict: 06/30/22 1531 Trans: 06/30/22 155 CVB [id number] Interpreted by: KATY MORAN DO Electronically signed by: KATY MORAN DO 06/30/221550 NAME: HELENA BANERJEE [facility] REC#: [id number] PT STATUS: REG ER : 1960 PHYSICIAN: MARIAN PRITCHARD MD ADMIT DATE: 06/30/22/ER FS Signed Date of Exam:06/30/22 CT HEAD WO EXAMINATION: CT head without contrast. TECHNIQUE: Multiple contiguous axial images were obtained through the brain without the use of intravenous contrast. All CT scans use one or more of the following dose optimizing techniques: automated exposure control, MA and/or KvP adjustment based on patient size and exam type or iterative reconstruction. HISTORY: chest tightness, syncope COMPARISON: None available. FINDINGS: The ventricles and sulci are normal. No abnormal attenuation of brain parenchyma is present. No acute intracranial hemorrhage or abnormal extra-axial fluid collections are present. No hyperdense vessel. The calvarium is intact. The mastoid air cells are clear. Mucosal thickening of the paranasal sinuses. The orbits are normal. IMPRESSION: 1. No acute intracranial abnormality. Dictated by: Dictated on workstation # [id number] Dict: 06/30/22 1530 Trans: 06/30/22 155 AS6 [id number] Interpreted by: KATY MORAN DO Electronically signed by: KATY MORAN DO 06/30/22 1551 Short Stay Diagnosis Discharge Diagnosis-Short Stay Admission Diagnosis Syncope and Chest pain Final Discharge Diagnosis Syncope and Chest pain Conclusion Plan 1. Chest pain -Negative troponins and BNP within normal range -Improved today -Cardiology following >no evidence of ACS found >Stress test today, awaiting results >Pt had ECHO yesterday 2. Syncope -Being followed by Cardiology, see above 3. DM -controlled 4. HTN -controlled Plan: Pt has been seen by Dr. Gomes who has ordered an ECHO and stress test. Cardio would like pt to follow up with the [facility] for [facility] monitor as outpatient. DC once cleared by Cardiology Continue ASA per cardiology recommendations Clinical Quality Measures AMI/AHF: ASA po Prior to arrival: Yes (324 mg by [facility]) TONIA STEPHEN DO 07/02/22 0517: Short Stay Diagnosis Discharge Diagnosis-Short Stay Admission Diagnosis Syncope with chest pain Final Discharge Diagnosis Syncope with chest pain no evidence of ACS Conclusion Plan Discharge home Supervisory-Addendum Brief Verification & Attestation Participated in pt care: history, MDM, physical Personally performed: exam, history, MDM, supervision of care Care discussed with: Medical Student Procedures: n/a Results interpretation: Verified all documentation Verification and Attestation of Medical Student E/M Service A medical student performed and documented this service in my presence. I reviewed and verified all information documented by the medical student and made modifications to such information, when appropriate. I personally performed the physical exam and medical decision making. Tonia Stephen Jul 02, 2022,05:17 WANDY HAMILTON Jul 01, 2022 13:08 TONIA STEPHEN DO Jul 02, 2022 05:17
[2022-07-01] MEDS ORDERED: ASPI81TA64 PO (13:18)
--- NOTE | 2022-07-01 15:50 | Consultation-Cardiology ---
HPI-Cardiology Cardiology Consultation: Date of Consultation 07/01/22 Time Seen by a Provider: 15:00 Date of Admission Attending Physician Destiny Whyte Aprn Admitting Physician Admitting Physician: Tonia Lynch DO Attending Physician: Tonia Lynch DO Consulting Physician ARELY WYATT MD, FACP, FACC HPI: Chief Complaint: Chest pain; syncope Mr. Alfaro is a 62 yr old male admitted to 408 from the ED. He reports he was sitting at the dinner table on Monday night and had taken a drink of tea. He reports the next thing he recalls he was on the floor with his girlfriend st anding over him. He denies any loss of bowel or bladder control. He had no symptoms prior to the syncopal episode. He reports since that event he has had pressure across his chest that has been constant. He states it does not change with exertion. He reports the pain was relieved with IV Morphine that he received in the ED and has not returned. He denies any SOB, palpitations or LE swelling. No c/o n/v/d. No c/o fever or chills. He is currently pain free. Review of Systems-Cardiology Review of Systems Constitutional: No chills, No fever, No malaise Eyes: No vision change Ears/Nose/Throat: No epistaxis, No recent hearing loss Respiratory: As described under HPI Cardiovascular: As described under HPI Gastrointestinal: No constipation, No diarrhea, No nausea, No vomiting Genitourinary: No dysuria, No hematuria Musculoskeletal: no symptoms reported Skin: No rash on exposed areas, No ulcerations on exposed areas Psychiatric/Neurological: As described under HPI, syncope; No anxiety, No depression, No seizure, No focal weakness Hematologic: No bleeding abnormalities All Other Systems Reviewed Negative Unless Noted: Yes [id number] Hx Patient Social History Employed/Student: employed Smoking Status: Never a Smoker Have you traveled recently?: No Alcohol Use?: No Pt feels they are or have been: No Past Medical History PMH As described under Assessment. Family Medical History Family Medical History: He reports his mother has "heart trouble" but is unsure of any details. Allergies and Home Medications Allergies Coded Allergies: No Known Drug Allergies (Unverified , 06/30/22) Patient Home Medication List Home Medication List Reviewed: Yes Amlodipine Besylate (Amlodipine Besylate) 5 Mg Tablet, 5 MG PO HS, (Reported) Entered as Reported by: LIU HART on 07/01/221138 Last Action: Reviewed Aspirin (Children's Aspirin) 81 Mg Tab.chew, 81 MG PO DAILY Prescribed by: KRISTA DOWNS on 07/01/22 1318 Empagliflozin (Jardiance) 10 Mg Tablet, 10 MG PO HS, (Reported) Entered as Reported by: LIU HART on 07/01/221138 Last Action: Reviewed Fenofibric Acid (Choline) (Fenofibric Acid) 45 Mg Capsule.dr, 45 MG PO HS, (Reported) Entered as Reported by: LIU HART on 07/01/221138 Last Action: Reviewed Glipizide (Glipizide ER) 5 Mg Tab.er.24, 5 MG PO HS, (Reported) Entered as Reported by: LIU HART on 07/01/221138 Last Action: Reviewed Losartan/Hydrochlorothiazide (Losartan-Hctz 100-25 mg Tab) 100 Mg-25 Mg Tablet, 1 EA PO HS, (Reported) Entered as Reported by: LIU HART on 07/01/221138 Last Action: Reviewed Meloxicam (Meloxicam) 15 Mg Tablet, 15 MG PO HS, (Reported) Entered as Reported by: LIU HART on 07/01/221138 Last Action: Reviewed Semaglutide (Ozempic) 2 Mg/0.75 Ml (8 Mg/3 Ml) Pen.injctr, 2 MG INJ WED, (Reported) Entered as Reported by: LIU HART on 07/01/221138 Last Action: Reviewed Sertraline HCl (Sertraline HCl) 50 Mg Tablet, 50 MG PO HS, (Reported) Entered as Reported by: LIU HART on 07/01/221138 Last Action: Reviewed Simvastatin (Simvastatin) 40 Mg Tablet, 40 MG PO HS, (Reported) Entered as Reported by: LIU HART on 07/01/221138 Last Action: Reviewed Physical Exam-Cardiology Physical Exam Vital Signs/I&O 07/01/22 07/01/22 07/01/22 07/01/22 04:01 07:00 07:43 07:47 Temp 36.2 36.2 Pulse 84 72 81 Resp 16 18 B/P (MAP) 136/79 (98) 119/79 (92) Pulse Ox 95 96 94 O2 Delivery Room Air Nasal Cannula Room Air 07/01/22 07/01/22 07/01/22 07/01/22 09:00 11:39 12:44 13:00 Temp 36.5 Pulse 70 83 83 Resp 18 16 B/P (MAP) 134/77 (96) 145/92 (109) Pulse Ox 94 95 O2 Delivery Room Air Room Air Room Air 07/01/22 00:00 Intake Total 600 ml Balance 600 ml Capillary Refill : Less Than 3 Seconds Constitutional: AAO x 3, well-developed, well-nourished HEENT: PERRL, hearing is well preserved, oral hygience is good Neck: No carotid bruit; carotid pulses are 2 + bilaterally Respiratory: No accessory muscle use, No respiratory distress; chest expansion is symmetric, chest is bilaterally symmetric, lungs clear to auscultation Cardiovascular: regular rate-rhythm; No JVD; S1 and S2 Gastrointestinal: No tender; soft, round, audible bowel sounds Extremities: no lower extremity edema bilateral Neurologic/Psychiatric: grossly intact (moves all extremities) Skin: No rash on exposed areas, No ulcerations on exposed areas Data Review Labs Laboratory Tests 06/30/22 20:38: Glucometer 106 06/30/22 23:50: Troponin I < 0.028 07/01/22 05:28: Glucometer 110 07/01/22 05:36: Troponin I < 0.028, White Blood Count 7.3, Red Blood Count 5.29, Hemoglobin 14.7, Hematocrit 44, Mean Corpuscular Volume 83, Mean Corpuscular Hemoglobin 28, Mean Corpuscular Hemoglobin Concent 34, Red Cell Distribution Width 13.4, Platelet Count 216, Mean Platelet Volume 10.0, Immature Granulocyte % (Auto) 0, Neutrophils (%) (Auto) 54, Lymphocytes (%) (Auto) 36, Monocytes (%) (Auto) 8, Eosinophils (%) (Auto) 2, Basophils (%) (Auto) 1, Neutrophils # (Auto) 3.9, Lymphocytes # (Auto) 2.6, Monocytes # (Auto) 0.6, Eosinophils # (Auto) 0.1, Basophils # (Auto) 0.0, Immature Granulocyte # (Auto) 0.0, Sodium Level 139, Potassium Level 3.2L, Chloride Level 108H, Carbon Dioxide Level 20L, Anion Gap 11, Blood Urea Nitrogen 20H, Creatinine 0.85, Estimat Glomerular Filtration Rate 98, BUN/Creatinine Ratio 24, Glucose Level 112H, Calcium Level 9.0, Corrected Calcium 9.1, Total Bilirubin 0.5, Aspartate Amino Transf (AST/SGOT) 33, Alanine Aminotransferase (ALT/SGPT) 38, Alkaline Phosphatase 45, Total Protein 6.8, Albumin 3.9, Triglycerides Level 629H, Cholesterol Level 173, LDL Cholesterol Direct 68, VLDL Cholesterol 126H, HDL Cholesterol 34L 07/01/22 10:52: Glucometer 104 07/01/22 14:45: Troponin I < 0.028 07/01/22 15:39: Glucometer 93 A/P-Cardiology Assessment/Admission Diagnosis Chest pain of undetermined etiology - no evidence of ACS - MPI on 07/01/22: no ischemia or infarction, normal LVEF Syncope of undetermined etiology - Echo on 07/01/22: LVEF 60-65%, mild MAC, grade 1 campoverde dysfunction HTN HLD - statin tx DM 2 GERD H/O cholecystectomy Discussion and Recomendations Chest discomfort of undetermined etiology - no evidence of ACS - based on c/o, risk factors as noted above we advise MPI to eval perfusion and echo to eval structure and function Syncope of undetermined etiology - we advise that he not drive, operate heavy machinery, climb ladders or participate in any activity that could result in harm to self or others - advise Zio monitor as out pt Continue ASA Continue home medications Further recs will be based on his hospital course We would like to thank medical services for this consult Clinical Quality Measures AMI/AHF: ASA po Prior to arrival: Yes (324 mg by [facility]) ARELY WYATT MD FACP FACC CCDS Jul 01, 2022 15:49
--- NOTE | 2022-07-01 18:12 | STRESS TEST ---
DATE OF SERVICE: 07/01/2022 RESTING AND POST REGADENOSON TECHNETIUM-99M TETROFOSMIN SPECT CT IMAGING ORDERING PHYSICIAN: Suri Yin APRN PRIMARY PHYSICIAN: Destiyn Whyte APRN ATTENDING PHYSICIAN: Dr. Lynch. CLINICAL DIAGNOSIS: Syncope. Baseline images were carried out after injection of 10.34 mCi of technetium-99m Tetrofosmin. This was followed by 0.4 mg of Regadenoson and 31.7 mCi of technetium-99m Tetrofosmin for stress imaging. The electrocardiogram showed sinus rhythm at baseline. It did not change significantly with the Regadenoson infusion. He tolerated the procedure well. Review of images at rest and following stress does not indicate any distinct perfusion defects consistent with significant myocardial ischemia or infarction. Gated images a show normal global left ventricular systolic function with normal regional wall motion. Left ventricular ejection fraction is calculated to be 68%. CONCLUSIONS: 1. No evidence of significant myocardial ischemia or infarction on this study. 2. Normal regional wall motion. 3. Normal global left ventricular systolic function with a calculated ejection fraction of 68%. Job ID: [id number] DocumentID: [id number] Dictated Date: 07/01/2022 15:01:33 Yard Specialist Date: 07/01/2022 18:11:55 Dictated By: ARELY WYATT MD, MA, FACP, FACC, MTDD
== END 2022-07-01 15:53 | disposition home or self-care (01) ==
LOC: ER FS 13:20 → 4TH 17:35
PROVIDERS: ADMIT Internal Medicine; ATTEND Internal Medicine
DX: R55 Syncope and collapse (principal); R07.9 Chest pain, unspecified; Z28.310 Unvaccinated for COVID-19; E11.9 Type 2 diabetes mellitus without complications; I10 Essential (primary) hypertension; Z79.899 Other long term (current) drug therapy
CPT/HCPCS: 36415; 70450; 71045; 71275; 78452; 80053 ×2; 80061; 82947 ×2; 83690; 83735; 83880; 84484 ×3; 85025 ×2; 85610; 85730; 93005; 93017; 93041; 96372 ×2; 96376; 99284; A9502; C8929; G0378; 93306; Q9967

== ENCOUNTER → 2022-07-01 | Outpatient (CLI) | payer OTHER ==
[~2022-07-01] MED LIST: AMLO-250 PO; ASPI81TA64 PO; EMPA10TA PO; FENO45CA2 PO; GLIP5TAB26 PO; LOSA1TAB23 PO; MELO15TA39 PO; SEMA2PEN INJ; SERT-413 PO; SIMV40TA25 PO
== END ==
LOC: CARD 16:23
PROVIDERS: ATTEND Nurse Practitioner Family
DX: R55 Syncope and collapse (principal)
CPT/HCPCS: 93246